=== PATIENT | male | born 1970 | race Caucasian/White ===

== ENCOUNTER 2018-06-30 07:17 | Emergency (ER) | payer SELFPAY ==
[~2018-06-30] VITALS: Ht 177.8 cm; Wt 75.0 kg
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
[2018-06-30] MEDS ORDERED: LORazepam 1MG TABLET PO ONE (07:30)
[2018-06-30] MEDS ORDERED: LORazepam 1MG TABLET ONE (07:30)
[2018-06-30] MEDS ORDERED: PLEASE ENTER ALLERGIES MC SCH (08:00)
--- NOTE | 2018-06-30 08:52 | NUR ---
PT RESTING ON GURNEY. NO ACUTE DISTRESS NOTED. NO NEEDS REQUESTED AT THIS TIME. PT ATE ALL BREAKFAST TRAY
--- NOTE | 2018-06-30 09:37 | NUR ---
Patient/Caregiver given discharge instructions and they have confirmed that they understand the instructions. Patient ambulatory with steady gait. PT LEFT WITH ALL PERSONAL BELONGINGS.
[2018-06-30 09:41] VITALS: BP 139/91
== END 2018-06-30 09:46 | disposition home or self-care (01) ==
LOC: ED 09:40
DX: F22 Delusional disorders (principal); F15.10 Other stimulant abuse, uncomplicated
CPT/HCPCS: 99284